=== PATIENT | male | born 1970 | race Caucasian/White ===

== ENCOUNTER 2019-02-26 15:05 | Inpatient (IN) | payer OTHER ==
[~2019-02-26] VITALS: Ht 170.2 cm; Wt 77.7 kg
--- NOTE | 2019-02-26 15:36 | NUR ---
PT ARRIVES TO ED WITH C/O OF RECTAL PAIN FIR A FEW MONTHS. HOWEVER IN THE PAST WEEK HE NOTICED IT WAS BLEEDING MORE AND THE PAIN GOT MORE SEVERE. PT DENIES ANY TRUAMA TO ANUS. PT REPORTS VALERIE HX OF CANCER. PT HAS NO COMPLEX MEDICAL HX. PT HAS NOT SEEN GI YET. PT CONNECTED TO MONITORS AND CALLLIGHT IN REACH AWAITINGFURTHER ORDERS. VSS
--- NOTE | 2019-02-26 15:57 | NUR ---
PIV PLACED AND LABS DRAWN AND SENT TO LAB.
[2019-02-26 16:18] LABS: ALANINE AMINOTRANSFERASE 69 U/L (12-78); ALBUMIN 3.9 g/dL (3.4-5.0); ANION GAP 7 mmol/L (5-15); CALCIUM 9.1 mg/dL (8.5-10.1); CHLORIDE 106 mmol/L (98-107); CREATININE 1.08 mg/dL (0.7-1.3)
[2019-02-26 16:21] LABS: ALKALINE PHOSPHATASE 130 U/L (45-117); BILIRUBIN,TOTAL 0.5 mg/dL (0.2-1.0); TOTAL PROTEIN 7.7 g/dL (6.4-8.2)
[2019-02-26 16:27] LABS: BASOPHILS # (AUTO) 0.05 x10^3/uL (0-0.1); BASOPHILS % (AUTO) 1 % (0-1); EOSINOPHILS # (AUTO) 0.11 x10^3/uL (0-0.4); EOSINOPHILS % (AUTO) 1 % (1-7); LYMPHOCYTES # (AUTO) 2.89 x10^3/uL (1-3.4); LYMPHOCYTES % (AUTO) 31 % (22-44); MD NO; MEAN CORPUSCULAR HEMOGLOBIN 32.3 pg (27.5-34.5); MEAN CORPUSCULAR HGB CONC 34.3 g/dL (33.2-36.2); MEAN CORPUSCULAR VOLUME 94.1 fL (81-97); MEAN PLATELET VOLUME 8.1 fL (7.4-10.4); MONOCYTES # (AUTO) 0.48 x10^3/uL (0.2-0.8); MONOCYTES % (AUTO) 5 % (2-9); NEUTROPHILS # (AUTO) 5.86 x10^3/uL (1.8-6.8); NEUTROPHILS % (AUTO) 63 % (42-75); PLATELET COUNT 306 x10^3/uL (130-400); RED CELL DISTRIBUTION WIDTH 13.5 % (9.4-14.8)
--- NOTE | 2019-02-26 17:28 | NUR ---
PT BACK FROM CT AT THIS TIME.
[2019-02-26] MEDS ORDERED: DIAZEPAM 5 MG TABLET ONE (17:59)
[2019-02-26] MEDS ORDERED: DIAZEPAM 5 MG TABLET PO ONE (18:00)
--- NOTE | 2019-02-26 18:23 | NUR ---
GO LYTELY STARTED AND PT GIVEN INSTRUCTIONS ON HOW FAST TO DRINK AND WHEN WE CAN STOP. PT VERBALZIED UNDERSTANDING. VSS
[2019-02-26] MEDS ORDERED: MORPHINE SULFATE 4 MG/ML, 1ML IVPush ONE (18:30)
[2019-02-26] MEDS ORDERED: GOLYTELY 4,000ML ORAL.SOL PO ONE (18:30)
--- NOTE | 2019-02-26 18:41 | NUR ---
PT RESTING,DRINKING MEDICATIONS.
--- NOTE | 2019-02-26 18:50 | NUR ---
REPORT TO CHIQUI OCHOA.
[2019-02-26] MEDS ORDERED: hydrALAzine 20 MG/ML, 1ML IVPush PRN (19:30)
[2019-02-26] MEDS ORDERED: ONDANSETRON 2MG/ML, 2ML IVPush PRN (19:30)
[2019-02-26] MEDS ORDERED: NICOTINE 21 MG/24 HR PATCH.TD24 TD SCH (19:30)
[2019-02-26] MEDS ORDERED: morphine SULFATE 10 MG/ML, 1ML IVPush PRN (19:30)
--- NOTE | 2019-02-26 19:33 | NUR ---
REPORT CALLED TO LULA AUSTIN RN.
[2019-02-26] MEDS ORDERED: TRAZ-137 PO (20:32)
[2019-02-26] MEDS ORDERED: HYDR-826 PO (20:32)
[2019-02-26] MEDS: SODIUM CHLORIDE 0.9% 1,000 ML IV SCH (21:20)
[2019-02-26 22:20] VITALS: BP 121/83
[2019-02-26] MEDS ORDERED: TRAZODONE 100MG TABLET PO PRN (22:30)
[2019-02-26] MEDS: LORazepam 0.5MG TABLET PO PRN (23:00)
[2019-02-27 01:25] VITALS: BP 96/66
[2019-02-27 05:23] LABS: BASOPHILS # (AUTO) 0.07 x10^3/uL (0-0.1); BASOPHILS % (AUTO) 1 % (0-1); EOSINOPHILS # (AUTO) 0.19 x10^3/uL (0-0.4); EOSINOPHILS % (AUTO) 2 % (1-7); LYMPHOCYTES # (AUTO) 4.01 x10^3/uL (1-3.4); LYMPHOCYTES % (AUTO) 44 % (22-44); MD NO; MEAN CORPUSCULAR HEMOGLOBIN 31.9 pg (27.5-34.5); MEAN CORPUSCULAR HGB CONC 33.2 g/dL (33.2-36.2); MEAN CORPUSCULAR VOLUME 96.3 fL (81-97); MONOCYTES # (AUTO) 0.73 x10^3/uL (0.2-0.8); MONOCYTES % (AUTO) 8 % (2-9); NEUTROPHILS # (AUTO) 4.18 x10^3/uL (1.8-6.8); NEUTROPHILS % (AUTO) 46 % (42-75); PLATELET COUNT 284 x10^3/uL (130-400); RED BLOOD COUNT 4.64 x10^6/uL (4.38-5.82); RED CELL DISTRIBUTION WIDTH 13.8 % (9.4-14.8)
[2019-02-27 05:30] LABS: ALANINE AMINOTRANSFERASE 63 U/L (12-78); ALBUMIN 3.5 g/dL (3.4-5.0); ANION GAP 7 mmol/L (5-15); CALCIUM 8.5 mg/dL (8.5-10.1); CHLORIDE 109 mmol/L (98-107); CREATININE 0.95 mg/dL (0.7-1.3)
[2019-02-27 05:35] LABS: ALKALINE PHOSPHATASE 106 U/L (45-117); BILIRUBIN,TOTAL 0.6 mg/dL (0.2-1.0)
[2019-02-27] MEDS: LORazepam 0.5MG TABLET PO PRN (07:55)
[2019-02-27 08:15] VITALS: BP 99/67
[2019-02-27] MEDS: SODIUM CHLORIDE 0.9% 1,000 ML IV SCH (08:30)
[2019-02-27] MEDS ORDERED: PROPOFOL 10 MG/ML, 20ML ONE (09:18)
[2019-02-27] MEDS ORDERED: MIDAZOLAM 1 MG/ML, 2ML ONE (09:18)
[2019-02-27] MEDS ORDERED: HALOPERIDOL 5 MG/ML IV PRN (10:00)
[2019-02-27] MEDS ORDERED: OXYcodone 5 MG/5 ML ORAL.SOL UDC PO PRN (10:00)
[2019-02-27] MEDS ORDERED: MEPERIDINE/PF 25MG/ML,1ML IVPush PRN (10:00)
[2019-02-27] MEDS ORDERED: PROMETHAZINE 25 MG/ML, 1ML IV PRN (10:00)
[2019-02-27] MEDS ORDERED: MIDAZOLAM 1 MG/ML, 2ML IV PRN (10:00)
[2019-02-27] MEDS ORDERED: FENTANYL PF 100 MCG/2ML IV PRN (10:00)
[2019-02-27] MEDS ORDERED: ALBUTEROL SULFATE 2.5 MG/3 ML NPPB PRN (10:00)
[2019-02-27] MEDS ORDERED: ONDANSETRON ODT 8 MG PO PRN (10:00)
[2019-02-27] MEDS ORDERED: DIAZEPAM 5 MG/ML, 2ML IVPush PRN (10:00)
[2019-02-27] MEDS ORDERED: ACETAMINOPHEN 325 MG TABLET PO PRN (10:00)
[2019-02-27] MEDS ORDERED: HYDROmorphone 2 MG/ML, 1ML IVPush PRN (10:00)
[2019-02-27] MEDS ORDERED: ONDANSETRON 2MG/ML, 2ML IV PRN (10:00)
[2019-02-27] MEDS ORDERED: MORPHINE SULFATE 4 MG/ML, 1ML IVPush PRN (10:00)
[2019-02-27] MEDS ORDERED: EPHEDRINE 50 MG/ML, 1ML IVPush PRN (10:00)
[2019-02-27] MEDS ORDERED: LABETALOL 5MG/ML, 20ML IV PRN (10:00)
[2019-02-27] MEDS ORDERED: hydrALAzine 20 MG/ML, 1ML IV PRN (10:00)
[2019-02-27] MEDS ORDERED: PROMETHAZINE 12.5 MG SUPP PR PRN (10:00)
[2019-02-27] MEDS ORDERED: POLY17PO5 PO (10:14)
[2019-02-27 14:05] VITALS: BP 101/55
[2019-02-27] MEDS ORDERED: TRAM50TA2 PO (14:56)
[2019-02-27] MEDS ORDERED: LORA0.5T PO (14:57)
[2019-03-31] MEDS ORDERED: hydrocodone PO (11:05)
[2019-03-31] MEDS ORDERED: OXYC20TA42 PO (11:49)
[2019-03-31] MEDS ORDERED: OXYC10TA6 PO (11:49)
[2019-03-31] MEDS ORDERED: LORA-446 PO (11:50)
== END 2019-02-27 15:07 | disposition home or self-care (01) | DRG 379 ==
LOC: ED 16:10 → EDIP 18:38 → 4NE 19:40 → DCLOUNGE 02-27 14:53
PROVIDERS: ADMIT Family Medicine; ATTEND Family Medicine
PROC: 0DBK8ZZ Excision of Ascending Colon, Via Natural or Artificial Opening Endoscopic (ICD-10-PCS; principal; 2019-02-26)
PROC: 0DBN8ZZ Excision of Sigmoid Colon, Via Natural or Artificial Opening Endoscopic (ICD-10-PCS; 2019-02-26)
PROC: 0DBP8ZX Excision of Rectum, Via Natural or Artificial Opening Endoscopic, Diagnostic (ICD-10-PCS; 2019-02-26)
DX: K57.31 Diverticulosis of large intestine without perforation or abscess with bleeding (principal); K59.00 Constipation, unspecified; F17.200 Nicotine dependence, unspecified, uncomplicated; E86.0 Dehydration; F31.9 Bipolar disorder, unspecified; F41.9 Anxiety disorder, unspecified; Z72.89 Other problems related to lifestyle; Z80.8 Family history of malignant neoplasm of other organs or systems; Z71.6 Tobacco abuse counseling; Z79.899 Other long term (current) drug therapy
CPT/HCPCS: 36415; 74177; 80053; 82378; 85025; 88305; 99285; G0378; J2250; J2704; J2270; J7030

== ENCOUNTER 2019-04-14 06:09 | Inpatient (IN) | payer OTHER, MEDICAID ==
[~2019-04-14] VITALS: Ht 170.2 cm; Wt 77.0 kg
[~2019-04-14 06:09] MED LIST: HYDR-826 PO; LORA-446 PO; LORA0.5T PO; OXYC10TA6 PO; OXYC20TA42 PO; POLY17PO5 PO; TRAM50TA2 PO; TRAZ-137 PO; hydrocodone PO
[2019-04-14 06:58] VITALS: BP 103/69
[2019-04-14] MEDS ORDERED: LACTATED RINGERS 1,000 ML IV SCH (07:02)
[2019-04-14] MEDS ORDERED: BUPIVACAINE/PF 0.5% ONE (07:13)
[2019-04-14] MEDS ORDERED: INDOCYANINE GREEN 25 MG VIAL ONE (07:14)
[2019-04-14] MEDS ORDERED: PROPOFOL 50 ML ONE (07:29)
[2019-04-14] MEDS ORDERED: MIDAZOLAM 1 MG/ML, 2ML ONE (07:29)
[2019-04-14] MEDS ORDERED: FENTANYL PF 250 MCG/5ML ONE (07:29)
[2019-04-14] MEDS ORDERED: CEFOTETAN PMX 2GM/50ML 50 ML IVPB ONE (08:00)
[2019-04-14] MEDS ORDERED: DEXAMETHASONE 4 MG/ML, 1ML ONE ×2 (08:00→09:16)
[2019-04-14] MEDS ORDERED: hydrALAzine 20 MG/ML, 1ML IV PRN (09:00)
[2019-04-14] MEDS ORDERED: EPHEDRINE 50 MG/ML, 1ML IM PRN (09:00)
[2019-04-14] MEDS ORDERED: MIDAZOLAM 1 MG/ML, 2ML IV PRN (09:00)
[2019-04-14] MEDS ORDERED: DIAZEPAM 5 MG/ML, 2ML IVPush PRN (09:00)
[2019-04-14] MEDS ORDERED: METOPROLOL 1 MG/ML, 5ML IV PRN (09:00)
[2019-04-14] MEDS ORDERED: HYDROmorphone 2 MG/ML, 1ML IVPush PRN (09:00)
[2019-04-14] MEDS ORDERED: PROMETHAZINE 25 MG/ML, 1ML IV PRN (09:00)
[2019-04-14] MEDS ORDERED: ONDANSETRON 2MG/ML, 2ML IV PRN (09:00)
[2019-04-14] MEDS ORDERED: EPHEDRINE 50 MG/ML, 1ML IVPush PRN (09:00)
[2019-04-14] MEDS ORDERED: ONDANSETRON ODT 8 MG PO PRN (09:00)
[2019-04-14] MEDS ORDERED: OXYcodone 5 MG/5 ML ORAL.SOL UDC PO PRN (09:00)
[2019-04-14] MEDS ORDERED: MEPERIDINE/PF 25MG/ML,1ML IVPush PRN (09:00)
[2019-04-14] MEDS ORDERED: DIPHENHYDRAMINE 50 MG/ML, 1ML IVPush PRN (09:00)
[2019-04-14] MEDS ORDERED: ONDANSETRON 2MG/ML, 2ML ONE (09:16)
[2019-04-14] MEDS ORDERED: SUCCINYLCHOLINE 20 MG/ML, 10ML ONE (09:16)
[2019-04-14] MEDS ORDERED: FENTANYL PF 100 MCG/2ML ONE (09:33)
[2019-04-14] MEDS ORDERED: OXYcodone 5 MG/5 ML ORAL.SOL UDC ONE (09:33)
[2019-04-14] MEDS: FENTANYL PF 100 MCG/2ML IV PRN ×2 (09:35→09:50)
[2019-04-14] MEDS ORDERED: DIAZEPAM 5 MG/ML, 2ML ONE (10:38)
== END 2019-04-14 10:51 | disposition home or self-care (01) | DRG 346 ==
LOC: ORIP 06:09
PROVIDERS: ADMIT Surgery; ATTEND Surgery
PROC: 3E0T3BZ Introduction of Anesthetic Agent into Peripheral Nerves and Plexi, Percutaneous Approach (ICD-10-PCS; 2019-04-14)
PROC: 0DJD4ZZ Inspection of Lower Intestinal Tract, Percutaneous Endoscopic Approach (ICD-10-PCS; principal; 2019-04-14 08:00)
DX: C20 Malignant neoplasm of rectum (principal); F17.210 Nicotine dependence, cigarettes, uncomplicated; Z82.49 Family history of ischemic heart disease and other diseases of the circulatory system; Z82.0 Family history of epilepsy and other diseases of the nervous system; Z80.8 Family history of malignant neoplasm of other organs or systems
CPT/HCPCS: 36415; 86850; 86900; J1100; J2250; J2405; J2704; J3010; J0330; J3490; J7120

== ENCOUNTER → 2019-08-09 | Outpatient (CLI) | payer OTHER, MEDICAID ==
[~2019-08-09] MED LIST changes: +OXYC30TA66 PO; +QUET100T4 PO; -TRAZ-137 PO; +TRAZ-175 PO
[2019-08-09 12:14] LABS: BASOPHILS # (AUTO) 0.02 x10^3/uL (0-0.1); BASOPHILS % (AUTO) 0 % (0-1); EOSINOPHILS # (AUTO) 0.17 x10^3/uL (0-0.4); EOSINOPHILS % (AUTO) 2 % (1-7); LYMPHOCYTES % (AUTO) 8 % (22-44); MD NO; MEAN CORPUSCULAR HEMOGLOBIN 33.5 pg (27.5-34.5); MEAN CORPUSCULAR HGB CONC 34.1 g/dL (33.2-36.2); MEAN CORPUSCULAR VOLUME 98.3 fL (81-97); MEAN PLATELET VOLUME 7.7 fL (7.4-10.4); MONOCYTES # (AUTO) 0.55 x10^3/uL (0.2-0.8); MONOCYTES % (AUTO) 7 % (2-9); NEUTROPHILS # (AUTO) 6.93 x10^3/uL (1.8-6.8); NEUTROPHILS % (AUTO) 83 % (42-75); PLATELET COUNT 308 x10^3/uL (130-400); RED CELL DISTRIBUTION WIDTH 15.1 % (9.4-14.8)
[2019-08-09 12:20] LABS: ALBUMIN 3.5 g/dL (3.4-5.0); ANION GAP 5 mmol/L (5-15); CALCIUM 8.8 mg/dL (8.5-10.1); CHLORIDE 107 mmol/L (98-107)
[2019-08-09 12:27] LABS: ALANINE AMINOTRANSFERASE 27 U/L (12-78); ALKALINE PHOSPHATASE 105 U/L (45-117); BILIRUBIN,TOTAL 0.6 mg/dL (0.2-1.0); CREATININE 0.97 mg/dL (0.7-1.3); TOTAL PROTEIN 7.7 g/dL (6.4-8.2)
== END | disposition home or self-care (01) ==
LOC: STAR 08:00
PROVIDERS: ATTEND Surgery
DX: Z01.818 Encounter for other preprocedural examination (principal)
CPT/HCPCS: 36415; 80053; 82378; 85025; 93005

== ENCOUNTER → 2019-08-16 | Outpatient (CLI) | payer OTHER, MEDICAID ==
[~2019-08-16] MED LIST changes: +AMOX500T PO
== END | disposition home or self-care (01) ==
LOC: WOUND 08:37
PROVIDERS: ATTEND Internal Medicine
DX: Z43.2 Encounter for attention to ileostomy (principal); C20 Malignant neoplasm of rectum; F17.200 Nicotine dependence, unspecified, uncomplicated; Z85.038 Personal history of other malignant neoplasm of large intestine
CPT/HCPCS: 99214

== ENCOUNTER 2019-08-18 08:30 | Inpatient (IN) | payer OTHER, MEDICAID ==
[~2019-08-18] VITALS: Ht 172.7 cm; Wt 76.0 kg
[~2019-08-18 08:30] MED LIST changes: -AMOX500T PO; +BUPIVACAINE/PF 0.5% ONE; +INDOCYANINE GREEN 25 MG VIAL ONE
[2019-08-18] MEDS ORDERED: LACTATED RINGERS 1,000 ML IV SCH (09:18)
[2019-08-18] MEDS ORDERED: AMOX500T PO (09:20)
[2019-08-18] MEDS ORDERED: GABAPENTIN 300 MG CAPSULE PO ONE (09:30)
[2019-08-18] MEDS ORDERED: ACETAMINOPHEN 500 MG TABLET PO ONE (09:30)
[2019-08-18] MEDS ORDERED: MIDAZOLAM 1 MG/ML, 2ML ONE (10:09)
[2019-08-18] MEDS ORDERED: FENTANYL PF 250 MCG/5ML ONE ×2 (10:09→12:21)
[2019-08-18] MEDS ORDERED: LIDOCAINE GEL 2%, 5ML ONE (10:10)
[2019-08-18] MEDS ORDERED: EPINEPHRINE 1 MG/ML, 1ML ONE (10:10)
[2019-08-18] MEDS ORDERED: ROPIvacaine/PF 0.2%, 20 ML ONE ×2 (10:10)
[2019-08-18] MEDS ORDERED: hydrALAzine 20 MG/ML, 1ML IV PRN (10:30)
[2019-08-18] MEDS ORDERED: LABETALOL 5MG/ML, 20ML IV PRN (10:30)
[2019-08-18] MEDS ORDERED: HALOPERIDOL 5 MG/ML IV PRN (10:30)
[2019-08-18] MEDS ORDERED: PROMETHAZINE 25 MG/ML, 1ML IV PRN (10:30)
[2019-08-18] MEDS ORDERED: OXYcodone 5 MG/5 ML ORAL.SOL UDC PO PRN (10:30)
[2019-08-18] MEDS ORDERED: HEPARIN 1,000 UNITS/ML, 10ML ONE (11:14)
[2019-08-18] MEDS ORDERED: CEFOTETAN PMX 2GM/50ML 50 ML ONE (11:44)
[2019-08-18] MEDS ORDERED: PROPOFOL 10 MG/ML, 20ML ONE (14:17)
[2019-08-18] MEDS ORDERED: ONDANSETRON 2MG/ML, 2ML ONE (14:17)
[2019-08-18] MEDS ORDERED: GLYCOPYRROLATE 0.2MG/1ML, 5ML ONE (14:17)
[2019-08-18] MEDS ORDERED: CEFAZOLIN 1,000 MG ONE (14:17)
[2019-08-18] MEDS ORDERED: DEXAMETHASONE 4 MG/ML, 1ML ONE (14:17)
[2019-08-18] MEDS ORDERED: SUCCINYLCHOLINE 20 MG/ML, 10ML ONE (14:17)
[2019-08-18] MEDS ORDERED: ROCURONIUM 10MG/ML,5ML ONE (14:17)
[2019-08-18] MEDS ORDERED: NEOSTIGMINE 1 MG/ML, 10ML ONE (14:17)
[2019-08-18] MEDS ORDERED: FENTANYL PF 100 MCG/2ML ONE ×2 (14:53→16:20)
[2019-08-18] MEDS ORDERED: OXYcodone 5 MG/5 ML ORAL.SOL UDC ONE ×2 (14:53→16:21)
[2019-08-18] MEDS ORDERED: HYDROmorphone 2 MG/ML, 1ML ONE (14:53)
[2019-08-18] MEDS: HYDROmorphone 2 MG/ML, 1ML IVPush PRN ×6 (14:58→16:40)
[2019-08-18] MEDS: FENTANYL PF 100 MCG/2ML IV PRN ×4 (14:58→16:39)
[2019-08-18] MEDS ORDERED: PROMETHAZINE 25 MG/ML, 1ML ONE (15:17)
[2019-08-18] MEDS ORDERED: MEPERIDINE/PF 25MG/ML,1ML ONE ×2 (15:38→16:53)
[2019-08-18] MEDS: MEPERIDINE/PF 25MG/ML,1ML IVPush PRN ×2 (15:40→16:57)
[2019-08-18] MEDS ORDERED: HYDROmorphone 1 MG/ML, 1ML INJ ONE (16:21)
[2019-08-18] MEDS ORDERED: HALOPERIDOL 5 MG/ML IVPush PRN (18:00)
[2019-08-18] MEDS ORDERED: SCOPOLAMINE 1MG PATCH TD PRN (18:00)
[2019-08-18] MEDS ORDERED: TRAZODONE 50MG TABLET PO PRN (18:00)
[2019-08-18] MEDS ORDERED: DIPHENHYDRAMINE 25 MG CAPSULE PO PRN (18:00)
[2019-08-18] MEDS ORDERED: DIPHENHYDRAMINE 50 MG/ML, 1ML IVPush PRN (18:00)
[2019-08-18] MEDS ORDERED: ONDANSETRON 2MG/ML, 2ML IV PRN (18:00)
[2019-08-18] MEDS ORDERED: DEXAMETHASONE 4 MG/ML, 1ML IVPush PRN (18:00)
[2019-08-18] MEDS ORDERED: CALCIUM CARBONATE 500 MG TAB.CHEW PO PRN (18:00)
[2019-08-18] MEDS: ACETAMINOPHEN 500 MG TABLET PO SCH (18:18)
[2019-08-18] MEDS: D5%-0.45NACL+KCL 20MEQ 1,000 ML IV SCH (18:19)
[2019-08-18] MEDS: HYDROmorphone 1 MG/ML, 1ML INJ IVPush PRN (19:41)
[2019-08-18] MEDS: LORazepam 2 MG/ML, 1ML IVPush PRN (19:42)
[2019-08-18 20:00] VITALS: BP 112/70
[2019-08-18] MEDS: QUETIAPINE 100MG TABLET PO SCH (20:35)
[2019-08-18] MEDS: OXYcodone IR 5MG TABLET PO PRN (20:35)
[2019-08-18 23:26] VITALS: BP 110/72
[2019-08-19] MEDS: ACETAMINOPHEN 500 MG TABLET PO SCH ×4 (00:05→17:49)
[2019-08-19] MEDS: OXYcodone IR 5MG TABLET PO PRN ×7 (00:10→21:31)
[2019-08-19 01:02] VITALS: BP 110/72
[2019-08-19 03:29] LABS: BASOPHILS # (AUTO) 0.03 x10^3/uL (0-0.1); BASOPHILS % (AUTO) 0 % (0-1); EOSINOPHILS % (AUTO) 0 % (1-7); LYMPHOCYTES # (AUTO) 0.95 x10^3/uL (1-3.4); LYMPHOCYTES % (AUTO) 9 % (22-44); MD NO; MEAN CORPUSCULAR HEMOGLOBIN 33.2 pg (27.5-34.5); MEAN CORPUSCULAR HGB CONC 34.3 g/dL (33.2-36.2); MEAN CORPUSCULAR VOLUME 96.7 fL (81-97); MEAN PLATELET VOLUME 7.6 fL (7.4-10.4); MONOCYTES # (AUTO) 0.65 x10^3/uL (0.2-0.8); MONOCYTES % (AUTO) 6 % (2-9); NEUTROPHILS # (AUTO) 9.57 x10^3/uL (1.8-6.8); NEUTROPHILS % (AUTO) 85 % (42-75); PLATELET COUNT 285 x10^3/uL (130-400); RED BLOOD COUNT 3.94 x10^6/uL (4.38-5.82); RED CELL DISTRIBUTION WIDTH 13.9 % (9.4-14.8)
[2019-08-19 03:36] LABS: ANION GAP 8 mmol/L (5-15); CALCIUM 8.7 mg/dL (8.5-10.1); CHLORIDE 106 mmol/L (98-107); CREATININE 0.86 mg/dL (0.7-1.3)
[2019-08-19 04:20] VITALS: BP 100/63
[2019-08-19] MEDS: LORazepam 1MG TABLET PO PRN ×2 (05:17→14:18)
[2019-08-19 07:20] VITALS: BP 103/69
[2019-08-19] MEDS: D5%-0.45NACL+KCL 20MEQ 1,000 ML IV SCH ×2 (08:18→22:36)
[2019-08-19] MEDS: HYDROmorphone 1 MG/ML, 1ML INJ IVPush PRN ×4 (08:27→19:34)
[2019-08-19] MEDS: ENOXAPARIN 40 MG/0.4 ML SQ SCH (12:19)
[2019-08-19 14:12] VITALS: BP 107/69
[2019-08-19] MEDS: LORazepam 2 MG/ML, 1ML IVPush PRN (19:19)
[2019-08-19 21:12] VITALS: BP 106/68
[2019-08-19] MEDS: QUETIAPINE 100MG TABLET PO SCH (21:30)
[2019-08-20] MEDS: ACETAMINOPHEN 500 MG TABLET PO SCH ×5 (00:51→23:36)
[2019-08-20] MEDS: HYDROmorphone 1 MG/ML, 1ML INJ IVPush PRN ×2 (00:51→05:44)
[2019-08-20 02:21] VITALS: BP 94/60
[2019-08-20] MEDS: LORazepam 2 MG/ML, 1ML IVPush PRN (03:17)
[2019-08-20] MEDS: OXYcodone IR 5MG TABLET PO PRN ×7 (03:18→23:36)
[2019-08-20 05:11] LABS: BASOPHILS # (AUTO) 0.06 x10^3/uL (0-0.1); BASOPHILS % (AUTO) 1 % (0-1); EOSINOPHILS # (AUTO) 0.04 x10^3/uL (0-0.4); EOSINOPHILS % (AUTO) 0 % (1-7); LYMPHOCYTES # (AUTO) 1.28 x10^3/uL (1-3.4); LYMPHOCYTES % (AUTO) 13 % (22-44); MD NO; MEAN CORPUSCULAR HEMOGLOBIN 33.4 pg (27.5-34.5); MEAN CORPUSCULAR HGB CONC 33.6 g/dL (33.2-36.2); MEAN CORPUSCULAR VOLUME 99.5 fL (81-97); MEAN PLATELET VOLUME 7.9 fL (7.4-10.4); MONOCYTES # (AUTO) 0.86 x10^3/uL (0.2-0.8); MONOCYTES % (AUTO) 9 % (2-9); NEUTROPHILS # (AUTO) 7.77 x10^3/uL (1.8-6.8); NEUTROPHILS % (AUTO) 78 % (42-75); PLATELET COUNT 261 x10^3/uL (130-400); RED BLOOD COUNT 3.97 x10^6/uL (4.38-5.82); RED CELL DISTRIBUTION WIDTH 13.8 % (9.4-14.8)
[2019-08-20 05:20] LABS: ANION GAP 9 mmol/L (5-15); CALCIUM 8.3 mg/dL (8.5-10.1); CHLORIDE 109 mmol/L (98-107); CREATININE 0.94 mg/dL (0.7-1.3)
[2019-08-20 07:01] VITALS: BP 99/63
[2019-08-20] MEDS: HYDROmorphone 2MG TABLET PO PRN ×5 (08:41→21:08)
[2019-08-20] MEDS: LORazepam 1MG TABLET PO PRN ×2 (12:04→20:08)
[2019-08-20] MEDS: ENOXAPARIN 40 MG/0.4 ML SQ SCH (12:04)
[2019-08-20] MEDS: D5%-0.45NACL+KCL 20MEQ 1,000 ML IV SCH (12:54)
[2019-08-20 13:12] VITALS: BP 99/63
[2019-08-20] MEDS ORDERED: TAMSULOSIN 0.4 MG CAP.ER.24H ONE (14:16)
[2019-08-20] MEDS: TAMSULOSIN 0.4 MG CAP.ER.24H PO SCH (14:18)
[2019-08-20 19:35] VITALS: BP 91/60
[2019-08-20] MEDS: QUETIAPINE 100MG TABLET PO SCH (20:26)
[2019-08-21] MEDS: HYDROmorphone 2MG TABLET PO PRN ×7 (00:26→23:52)
[2019-08-21] MEDS: D5%-0.45NACL+KCL 20MEQ 1,000 ML IV SCH ×2 (01:30→17:24)
[2019-08-21 02:24] VITALS: BP 97/67
[2019-08-21] MEDS: OXYcodone IR 5MG TABLET PO PRN ×6 (02:36→20:12)
[2019-08-21] MEDS: LORazepam 1MG TABLET PO PRN ×3 (05:02→21:23)
[2019-08-21 05:38] LABS: CHLORIDE 109 mmol/L (98-107)
[2019-08-21 05:40] LABS: BASOPHILS # (AUTO) 0.05 x10^3/uL (0-0.1); BASOPHILS % (AUTO) 1 % (0-1); EOSINOPHILS # (AUTO) 0.29 x10^3/uL (0-0.4); EOSINOPHILS % (AUTO) 4 % (1-7); LYMPHOCYTES # (AUTO) 1.34 x10^3/uL (1-3.4); LYMPHOCYTES % (AUTO) 18 % (22-44); MD NO; MEAN CORPUSCULAR HEMOGLOBIN 32.8 pg (27.5-34.5); MEAN CORPUSCULAR HGB CONC 33.7 g/dL (33.2-36.2); MEAN CORPUSCULAR VOLUME 97.5 fL (81-97); MEAN PLATELET VOLUME 7.9 fL (7.4-10.4); MONOCYTES # (AUTO) 0.72 x10^3/uL (0.2-0.8); MONOCYTES % (AUTO) 10 % (2-9); NEUTROPHILS % (AUTO) 68 % (42-75); PLATELET COUNT 243 x10^3/uL (130-400); RED BLOOD COUNT 4.21 x10^6/uL (4.38-5.82); RED CELL DISTRIBUTION WIDTH 14.2 % (9.4-14.8)
[2019-08-21 05:58] LABS: ANION GAP 8 mmol/L (5-15); CALCIUM 8.8 mg/dL (8.5-10.1); CREATININE 0.85 mg/dL (0.7-1.3)
[2019-08-21] MEDS: ACETAMINOPHEN 500 MG TABLET PO SCH ×4 (05:59→23:52)
[2019-08-21 07:52] VITALS: BP 98/51
[2019-08-21] MEDS: TAMSULOSIN 0.4 MG CAP.ER.24H PO SCH (07:57)
[2019-08-21] MEDS: ENOXAPARIN 40 MG/0.4 ML SQ SCH (12:09)
[2019-08-21 13:35] VITALS: BP 89/59
[2019-08-21] MEDS: QUETIAPINE 100MG TABLET PO SCH (20:12)
[2019-08-21 21:17] VITALS: BP 82/57
[2019-08-22 03:15] VITALS: BP 91/60
[2019-08-22] MEDS: OXYcodone IR 5MG TABLET PO PRN ×6 (03:22→20:32)
[2019-08-22] MEDS: HYDROmorphone 2MG TABLET PO PRN ×6 (03:52→21:25)
[2019-08-22] MEDS: ACETAMINOPHEN 500 MG TABLET PO SCH ×3 (05:32→18:17)
[2019-08-22] MEDS: LORazepam 1MG TABLET PO PRN ×2 (05:32→13:59)
[2019-08-22 07:12] VITALS: BP 94/60
[2019-08-22] MEDS: D5%-0.45NACL+KCL 20MEQ 1,000 ML IV SCH ×2 (07:48→22:06)
[2019-08-22] MEDS: TAMSULOSIN 0.4 MG CAP.ER.24H PO SCH (08:00)
[2019-08-22] MEDS: ENOXAPARIN 40 MG/0.4 ML SQ SCH (12:47)
[2019-08-22 13:46] VITALS: BP 90/61
[2019-08-22 20:30] VITALS: BP 103/65
[2019-08-22] MEDS: QUETIAPINE 100MG TABLET PO SCH (20:32)
[2019-08-23] MEDS: LORazepam 1MG TABLET PO PRN ×2 (00:44→09:48)
[2019-08-23] MEDS: ACETAMINOPHEN 500 MG TABLET PO SCH ×3 (00:44→12:08)
[2019-08-23] MEDS: OXYcodone IR 5MG TABLET PO PRN ×4 (00:47→12:45)
[2019-08-23 03:09] VITALS: BP 111/62
[2019-08-23] MEDS: HYDROmorphone 2MG TABLET PO PRN ×3 (03:12→11:08)
[2019-08-23 07:06] VITALS: BP 99/66
[2019-08-23] MEDS: TAMSULOSIN 0.4 MG CAP.ER.24H PO SCH (07:51)
[2019-08-23] MEDS ORDERED: ENOX40SY4 SQ (09:21)
[2019-08-23] MEDS: ENOXAPARIN 40 MG/0.4 ML SQ SCH (12:08)
== END 2019-08-23 13:11 | disposition home health service (06) | DRG 330 ==
LOC: EDSTATUS 08:30 → ORIP 08:51 → 4NE 17:43 → DCLOUNGE 08-23 13:00
PROVIDERS: ADMIT Surgery; ATTEND Surgery
PROC: 0D1B4Z4 Bypass Ileum to Cutaneous, Percutaneous Endoscopic Approach (ICD-10-PCS; principal; 2019-08-20)
PROC: 0DNE4ZZ Release Large Intestine, Percutaneous Endoscopic Approach (ICD-10-PCS; 2019-08-20)
PROC: 0DBP4ZZ Excision of Rectum, Percutaneous Endoscopic Approach (ICD-10-PCS; 2019-08-20)
PROC: 04L Lower Arteries, Occlusion (ICD-10-PCS; 2019-08-20)
PROC: 8E0W4CZ Robotic Assisted Procedure of Trunk Region, Percutaneous Endoscopic Approach (ICD-10-PCS; 2019-08-20)
DX: C20 Malignant neoplasm of rectum (principal); F11.20 Opioid dependence, uncomplicated; F41.1 Generalized anxiety disorder; G89.29 Other chronic pain; R33.9 Retention of urine, unspecified
CPT/HCPCS: 36415; 77001; S0020; 80048; 85025; 88305; 88309; G0378; J0171; J0690; J1100; J1170; J1644; J1650; J2250; J2405; J2550; J2704; J2710; J2795; J3010; C1788; J0330; J2060; J2175; J3480; J3490; J7120

== ENCOUNTER 2020-01-21 08:25 | Outpatient (CLI) | payer OTHER, MEDICAID ==
[~2020-01-21 08:25] MED LIST changes: +AMOX500T PO; -BUPIVACAINE/PF 0.5% ONE; +ENOX40SY4 SQ; -INDOCYANINE GREEN 25 MG VIAL ONE
[2020-01-21] MEDS ORDERED: CYSTO CONRAY II 250 ML VIAL UR ONE (10:16)
[2020-01-28] MEDS ORDERED: CLONIPINE PO (11:07)
[2020-01-28] MEDS ORDERED: DIVA500T17 PO (11:07)
[2020-01-31] MEDS ORDERED: DIVA500T2 PO (08:40)
== END 2020-01-21 23:59 | disposition home or self-care (01) ==
LOC: RAD 08:25
PROVIDERS: ATTEND Surgery
DX: K57.30 Diverticulosis of large intestine without perforation or abscess without bleeding (principal); Z93.2 Ileostomy status
CPT/HCPCS: 74270; Q9958

== ENCOUNTER → 2020-01-28 | Outpatient (CLI) | payer OTHER, MEDICAID ==
[~2020-01-28] MED LIST changes: +CLONIPINE PO; +DIVA500T17 PO; +DIVA500T2 PO
== END | disposition home or self-care (01) ==
LOC: STAR 10:26
PROVIDERS: ATTEND Surgery
DX: Z01.818 Encounter for other preprocedural examination (principal); Z11.59 Encounter for screening for other viral diseases
CPT/HCPCS: 36415; 87635

== ENCOUNTER 2020-02-02 08:00 | Inpatient (IN) | payer OTHER, MEDICAID ==
[~2020-02-02] VITALS: Ht 172.7 cm; Wt 68.0 kg
[~2020-02-02 08:00] MED LIST changes: +FENTANYL PF 250 MCG/5ML ONE; +MIDAZOLAM 1 MG/ML, 2ML ONE
[2020-02-02] MEDS ORDERED: CHLORHEXIDINE 15 ML UDC ONE (08:23)
[2020-02-02] MEDS ORDERED: TAMS-11 PO (08:30)
[2020-02-02] MEDS ORDERED: LACTATED RINGERS 1,000 ML IV SCH (08:33)
[2020-02-02] MEDS ORDERED: SUGAMMADEX 200 MG/2 ML IVPush ONE (08:58)
[2020-02-02] MEDS ORDERED: MEPERIDINE/PF 25MG/0.5ML IVPush PRN (09:00)
[2020-02-02] MEDS ORDERED: DIAZEPAM 5 MG/ML, 2ML IVPush PRN (09:00)
[2020-02-02] MEDS ORDERED: KETOROLAC 30 MG/1 ML IV PRN (09:00)
[2020-02-02] MEDS ORDERED: ALBUTEROL SULFATE 2.5 MG/3 ML NPPB PRN (09:00)
[2020-02-02] MEDS ORDERED: LABETALOL 5MG/ML, 20ML IV PRN (09:00)
[2020-02-02] MEDS ORDERED: CHLORHEXIDINE 15 ML UDC MM ONE (09:00)
[2020-02-02] MEDS ORDERED: PROMETHAZINE 25 MG/ML, 1ML IV PRN (09:00)
[2020-02-02] MEDS ORDERED: ACETAMINOPHEN 325 MG TABLET PO PRN (09:00)
[2020-02-02] MEDS ORDERED: hydrALAzine 20 MG/ML, 1ML IV PRN (09:00)
[2020-02-02] MEDS ORDERED: OXYcodone 5 MG/5 ML ORAL.SOL UDC PO PRN (09:00)
[2020-02-02] MEDS ORDERED: CEFAZOLIN 1,000 MG ONE (09:57)
[2020-02-02] MEDS ORDERED: GLYCOPYRROLATE 0.2MG/1ML, 5ML ONE (09:57)
[2020-02-02] MEDS ORDERED: SUCCINYLCHOLINE 20 MG/ML, 10ML ONE (09:57)
[2020-02-02] MEDS ORDERED: NEOSTIGMINE 1 MG/ML, 10ML ONE (09:57)
[2020-02-02] MEDS ORDERED: PROPOFOL 10 MG/ML, 20ML ONE (09:57)
[2020-02-02] MEDS ORDERED: ROCURONIUM 10MG/ML,5ML ONE (09:57)
[2020-02-02] MEDS ORDERED: ONDANSETRON 2MG/ML, 2ML ONE (09:57)
[2020-02-02] MEDS ORDERED: DEXAMETHASONE 4 MG/ML, 1ML ONE (09:57)
[2020-02-02] MEDS ORDERED: BUPIVACAINE/PF-EPI 0.5% 1:200K ONE (10:07)
[2020-02-02] MEDS ORDERED: FENTANYL PF 100 MCG/2ML ONE ×2 (10:45→11:03)
[2020-02-02] MEDS: FENTANYL PF 100 MCG/2ML IV PRN ×4 (10:47→11:11)
[2020-02-02] MEDS ORDERED: ACETAMINOPHEN 650 MG/20.3 ML UDC ONE (10:55)
[2020-02-02] MEDS ORDERED: OXYcodone 5 MG/5 ML ORAL.SOL UDC ONE (10:55)
[2020-02-02] MEDS ORDERED: HYDROmorphone 2 MG/ML, 1ML ONE (11:07)
[2020-02-02] MEDS: HYDROmorphone 2 MG/ML, 1ML IVPush PRN ×4 (11:17→11:55)
[2020-02-02] MEDS ORDERED: CALCIUM CARBONATE 500 MG TAB.CHEW PO PRN (13:00)
[2020-02-02] MEDS ORDERED: ONDANSETRON 2MG/ML, 2ML IV PRN (13:00)
[2020-02-02] MEDS ORDERED: DEXAMETHASONE 4 MG/ML, 1ML IVPush PRN (13:00)
[2020-02-02] MEDS ORDERED: DIPHENHYDRAMINE 50 MG/ML, 1ML IVPush PRN (13:00)
[2020-02-02] MEDS ORDERED: SCOPOLAMINE 1MG PATCH TD PRN (13:00)
[2020-02-02] MEDS ORDERED: LORazepam 2 MG/ML, 1ML IVPush PRN (13:00)
[2020-02-02] MEDS ORDERED: HALOPERIDOL 5 MG/ML IVPush PRN (13:00)
[2020-02-02] MEDS ORDERED: OXYcodone IR 5MG TABLET PO PRN (13:00)
[2020-02-02] MEDS ORDERED: TRAZODONE 50MG TABLET PO PRN (13:00)
[2020-02-02] MEDS ORDERED: DIPHENHYDRAMINE 25 MG CAPSULE PO PRN (13:00)
[2020-02-02] MEDS ORDERED: HYDROmorphone 1 MG/ML, 1ML INJ IVPush PRN (13:00)
[2020-02-02] MEDS: LORazepam 1MG TABLET PO PRN ×2 (13:02→21:13)
[2020-02-02] MEDS: D5%-0.45NACL+KCL 20MEQ 1,000 ML IV SCH (13:19)
[2020-02-02 13:50] VITALS: BP 86/55
[2020-02-02] MEDS: OXYcodone IR 30 MG TABLET PO SCH ×4 (14:00→23:35)
[2020-02-02 15:24] VITALS: BP 104/65
[2020-02-02] MEDS: ACETAMINOPHEN 500 MG TABLET PO SCH (18:15)
[2020-02-02 19:48] VITALS: BP 86/54
[2020-02-02 21:04] VITALS: BP 99/62
[2020-02-02] MEDS: DIVALPROEX 500 MG TAB.ER.24H PO SCH (21:13)
[2020-02-02] MEDS: TAMSULOSIN 0.4 MG CAP.ER.24H PO SCH (21:13)
[2020-02-03 00:39] VITALS: BP 98/61
[2020-02-03] MEDS: D5%-0.45NACL+KCL 20MEQ 1,000 ML IV SCH ×2 (03:18→17:07)
[2020-02-03] MEDS: OXYcodone IR 30 MG TABLET PO SCH ×6 (03:37→23:37)
[2020-02-03 03:41] VITALS: BP 97/59
[2020-02-03 04:07] LABS: BASOPHILS # (AUTO) 0.03 x10^3/uL (0-0.1); BASOPHILS % (AUTO) 0 % (0-1); EOSINOPHILS # (AUTO) 0.27 x10^3/uL (0-0.4); EOSINOPHILS % (AUTO) 3 % (1-7); LYMPHOCYTES # (AUTO) 0.66 x10^3/uL (1-3.4); LYMPHOCYTES % (AUTO) 7 % (22-44); MD NO; MEAN CORPUSCULAR HEMOGLOBIN 34.1 pg (27.5-34.5); MEAN CORPUSCULAR HGB CONC 32.8 g/dL (33.2-36.2); MEAN CORPUSCULAR VOLUME 103.9 fL (81-97); MEAN PLATELET VOLUME 7.5 fL (7.4-10.4); MONOCYTES # (AUTO) 0.68 x10^3/uL (0.2-0.8); MONOCYTES % (AUTO) 7 % (2-9); NEUTROPHILS # (AUTO) 7.75 x10^3/uL (1.8-6.8); NEUTROPHILS % (AUTO) 83 % (42-75); PLATELET COUNT 297 x10^3/uL (130-400); RED BLOOD COUNT 3.66 x10^6/uL (4.38-5.82); RED CELL DISTRIBUTION WIDTH 14.8 % (9.4-14.8)
[2020-02-03 04:19] LABS: ANION GAP 8 mmol/L (5-15); CALCIUM 8.2 mg/dL (8.5-10.1); CHLORIDE 108 mmol/L (98-107); CREATININE 1.09 mg/dL (0.7-1.3)
[2020-02-03] MEDS: LORazepam 1MG TABLET PO PRN ×3 (05:13→23:39)
[2020-02-03] MEDS: ACETAMINOPHEN 500 MG TABLET PO SCH ×4 (05:55→19:25)
[2020-02-03 07:28] VITALS: BP 96/58
[2020-02-03] MEDS: TAMSULOSIN 0.4 MG CAP.ER.24H PO SCH ×2 (07:33→21:01)
[2020-02-03] MEDS: ENOXAPARIN 40 MG/0.4 ML SQ SCH (08:45)
[2020-02-03 13:44] VITALS: BP 104/71
[2020-02-03 20:01] VITALS: BP 111/72
[2020-02-03] MEDS: DIVALPROEX 500 MG TAB.ER.24H PO SCH (21:01)
[2020-02-03] MEDS: QUETIAPINE 100MG TABLET PO SCH (21:01)
[2020-02-04] MEDS: ACETAMINOPHEN 500 MG TABLET PO SCH ×2 (01:50→08:00)
[2020-02-04 03:07] VITALS: BP 100/66
[2020-02-04] MEDS: OXYcodone IR 30 MG TABLET PO SCH ×2 (03:27→08:00)
[2020-02-04 04:47] LABS: BASOPHILS # (AUTO) 0.01 x10^3/uL (0-0.1); BASOPHILS % (AUTO) 0 % (0-1); EOSINOPHILS # (AUTO) 0.48 x10^3/uL (0-0.4); EOSINOPHILS % (AUTO) 7 % (1-7); LYMPHOCYTES # (AUTO) 1.05 x10^3/uL (1-3.4); LYMPHOCYTES % (AUTO) 15 % (22-44); MD NO; MEAN CORPUSCULAR HEMOGLOBIN 34.3 pg (27.5-34.5); MEAN CORPUSCULAR HGB CONC 33.3 g/dL (33.2-36.2); MEAN PLATELET VOLUME 7.9 fL (7.4-10.4); MONOCYTES # (AUTO) 0.67 x10^3/uL (0.2-0.8); MONOCYTES % (AUTO) 9 % (2-9); NEUTROPHILS # (AUTO) 4.91 x10^3/uL (1.8-6.8); NEUTROPHILS % (AUTO) 69 % (42-75); PLATELET COUNT 256 x10^3/uL (130-400); RED BLOOD COUNT 3.69 x10^6/uL (4.38-5.82); RED CELL DISTRIBUTION WIDTH 14.9 % (9.4-14.8)
[2020-02-04 04:49] LABS: CALCIUM 8.2 mg/dL (8.5-10.1); CHLORIDE 108 mmol/L (98-107)
[2020-02-04 04:53] LABS: ANION GAP 6 mmol/L (5-15); CREATININE 0.93 mg/dL (0.7-1.3)
[2020-02-04] MEDS: D5%-0.45NACL+KCL 20MEQ 1,000 ML IV SCH (07:54)
[2020-02-04] MEDS: TAMSULOSIN 0.4 MG CAP.ER.24H PO SCH (08:01)
[2020-02-04] MEDS ORDERED: OXYC-302 PO (08:53)
[2020-02-04] MEDS: QUETIAPINE 100MG TABLET PO SCH (09:11)
[2020-02-04] MEDS: ENOXAPARIN 40 MG/0.4 ML SQ SCH (09:11)
== END 2020-02-04 09:19 | disposition home or self-care (01) | DRG 331 ==
LOC: ORIP 08:00 → EDSTATUS 10:00 → 4NE 12:11
PROVIDERS: ADMIT Surgery; ATTEND Surgery
PROC: 02PYX3Z Removal of Infusion Device from Great Vessel, External Approach (ICD-10-PCS; 2020-02-02)
PROC: 0DBB0ZZ Excision of Ileum, Open Approach (ICD-10-PCS; principal; 2020-02-02 10:00)
DX: Z43.2 Encounter for attention to ileostomy (principal); F31.9 Bipolar disorder, unspecified; G89.29 Other chronic pain; R33.9 Retention of urine, unspecified; Z88.5 Allergy status to narcotic agent; Z85.048 Personal history of other malignant neoplasm of rectum, rectosigmoid junction, and anus
CPT/HCPCS: 36415; 80048; 85025; 88304; G0378; J0690; J1100; J1170; J1650; J2250; J2405; J2704; J2710; J3010; J0330; J3480; J7120

== ENCOUNTER → 2020-02-09 | Outpatient (CLI) | payer OTHER, MEDICAID ==
[~2020-02-09] MED LIST changes: -FENTANYL PF 250 MCG/5ML ONE; -MIDAZOLAM 1 MG/ML, 2ML ONE; +OXYC-302 PO; +TAMS-11 PO
[2020-02-09 14:53] LABS: ANION GAP 7 mmol/L (5-15); CHLORIDE 107 mmol/L (98-107); CREATININE 0.94 mg/dL (0.7-1.3)
[2020-02-09 15:09] LABS: CLOSTRIDIUM DIFFICILE ANTIGEN NEGATIVE; CLOSTRIDIUM DIFFICILE TOXIN NEGATIVE (Negative)
[2020-02-09 15:35] LABS: BASOPHILS # (AUTO) 0.03 x10^3/uL (0-0.1); BASOPHILS % (AUTO) 1 % (0-1); EOSINOPHILS # (AUTO) 0.15 x10^3/uL (0-0.4); EOSINOPHILS % (AUTO) 2 % (1-7); LYMPHOCYTES # (AUTO) 1.78 x10^3/uL (1-3.4); LYMPHOCYTES % (AUTO) 24 % (22-44); MD SCAN; MEAN CORPUSCULAR HEMOGLOBIN 34.1 pg (27.5-34.5); MEAN CORPUSCULAR HGB CONC 33.3 g/dL (33.2-36.2); MEAN CORPUSCULAR VOLUME 102.4 fL (81-97); MEAN PLATELET VOLUME 7.3 fL (7.4-10.4); MONOCYTES # (AUTO) 0.74 x10^3/uL (0.2-0.8); MONOCYTES % (AUTO) 10 % (2-9); NEUTROPHILS # (AUTO) 4.63 x10^3/uL (1.8-6.8); NEUTROPHILS % (AUTO) 63 % (42-75); PLATELET COUNT 444 x10^3/uL (130-400); RED BLOOD COUNT 4.33 x10^6/uL (4.38-5.82)
== END | disposition home or self-care (01) ==
LOC: LAB 14:28
PROVIDERS: ATTEND Surgery
DX: R19.7 Diarrhea, unspecified (principal)
CPT/HCPCS: 36415; 80048; 85025; 87324

== ENCOUNTER 2020-02-17 21:32 | Emergency (ER) | payer OTHER, MEDICAID ==
[~2020-02-17] VITALS: Ht 170.2 cm; Wt 72.0 kg
[2020-02-17 21:35] VITALS: BP 101/66
== END 2020-02-17 22:42 | disposition home or self-care (01) ==
LOC: ED 22:39
DX: N40.0 Benign prostatic hyperplasia without lower urinary tract symptoms (principal); R33.9 Retention of urine, unspecified; F17.210 Nicotine dependence, cigarettes, uncomplicated; Z85.040 Personal history of malignant carcinoid tumor of rectum
CPT/HCPCS: 99284; 99406